=== PATIENT | female | born 1990 | race Caucasian/White ===

== ENCOUNTER 2020-05-05 11:16 | Outpatient (CLI) | payer BC, SELFPAY ==
--- NOTE | ~2020-05-05 | MMUS_ITS ---
EXAMINATION: MM diagnostic colten BI w kit, US breast LT limited HISTORY: Left breast mass TECHNIQUE: Full field and spot 3-D tomosynthesis images of the right breast and full field 3-D Tomosy nthesis images of the left breast were performed and synthetic 2-D images were generated. CAD analysi s was submitted and interpreted. High resolution targeted left breast ultrasound was performed. COMPARISON: None BREAST PARENCHYMAL COMPOSITION: There are scattered areas of fibroglandular density. FINDINGS: MAMMOGRAPHIC FINDINGS: There is an approximately 1.4 x 1.8 cm irregular spiculated mass posteriorly in the outer mid to uppe r left breast, suggestive of malignancy. No other suspicious mass or architectural distortion or any malignant calcification, skin thickening or retraction is detected. ULTRASOUND: There is an irregular hypoechoic solid mass with posterior shadowing at 3:00 position 7 cm from nippl e, measuring up to 1.5 x 2.4 cm dimension, highly suggestive of malignancy. IMPRESSION: 1. 2.4 cm irregular mass of left breast at 3:00 7 cm from nipple, highly suggestive of malignancy 2. Appropriate action should be taken; ultrasound guided biopsy is recommended. BI-RADS category 5, highly suggestive of malignancy. Dr. Ledbetter telephoned the finding to Dr. Nikolay Ornelas'arturo Rogers on 05/05/2020 at 1525 hours. Reviewed, dictated and finalized at location A. IMPRESSION: 1. 2.4 cm irregular mass of left breast at 3:00 7 cm from nipple, highly sugges tive of malignancy 2. Appropriate action should be taken; ultrasound guided biopsy is recommended. BI-RADS category 5, highly suggestive of malignancy. Dr. Ledbetter telephoned the finding to Dr. Nikolay Ornelas'arturo Rogers on 05/05/2020 a t 1525 hours. IMPRESSION: 1. 2.4 cm irregular mass of left breast at 3:00 7 cm from nipple, highly sugges tive of malignancy 2. Appropriate action should be taken; ultrasound guided biopsy is recommended. BI-RADS category 5, highly suggestive of malignancy. Dr. Ledbetter telephoned the finding to Dr. Nikolay Ornelas's Izabella Rogers on 05/05/2020 a t 1525 hours.
== END 2020-05-05 11:17 | disposition home or self-care (01) ==
PROVIDERS: PCP Nurse Practitioner Family; Visit Provider Obstetrics & Gynecology
DX: N63.0 Unspecified lump in unspecified breast (principal); R92.8 Other abnormal and inconclusive findings on diagnostic imaging of breast
CPT/HCPCS: 76642; 77062; 77066; G0279

== ENCOUNTER 2020-06-18 10:17 | Emergency (ER) | payer BC, SELFPAY ==
--- NOTE | ~2020-06-18 | CT_ITS ---
EXAMINATION: CT abdomen pelvis w con EXAM DATE: 06/18/2020 12:16 INDICATION: Left lower quadrant pain. Hematochezia. Diarrhea. TECHNIQUE: Spiral CT of the abdomen and pelvis was performed following intravenous injection of 100 m L Omnipaque 350. Axial, coronal and sagittal images were reviewed. The dose-length product (DLP) fo r this examination was 945.44 mGy-cm. The exposure was tailored according to patient size (auto mA e xposure control), and iterative reconstruction (ASIR) was used as additional dose reduction technique . Comparison is made to prior examination from 01/27/2019. FINDINGS: No change in the subcentimeter right liver lobe hypodensity, a benign finding. Gallbladder is unremarkable. No biliary obstruction. Portal and splenic veins are patent. Kidneys enhance sym metrically. There is no hydronephrosis. There is IUD which appears to be centrally located within the endometrium, expected position. Ovaries are normal in size. The bladder is unremarkable. There is no retroperitoneal or pelvic lymphadenopathy. There is descending and to a lesser extent sigmoid colonic wall edema without pneumatosis. Appearance is consistent with colitis most likely infectious. The appendix is normal. The stomach and small b owel are unremarkable. No free intraperitoneal gas. The heart is normal in size. There are no pe ricardial or pleural effusions. The lung bases are unremarkable. The bones are unremarkable. IMPRESSION: Descending colonic colitis. Reviewed, dictated and finalized at location A. [facility] OFFICE SCHEDULER IMPRESSION: Descending colonic colitis.
[2020-06-18 10:19] VITALS: BP 124/78; PULSE 107; RESP 18; TEMP 36.4; O2SAT 97
[2020-06-18 10:44] LABS: Basophils Percent Auto 0.2 % (0.2-1.2); Eosinophils Percent Auto 0.1 % (0-4.4); Hematocrit 43.5 % (37.0-47.0); Hemoglobin 15.1 g/dL (12.0-15.0); Immature Granulocyte Absolute 0.06 K/mm3 (0.00-0.031); Immature Granulocyte Percent A 0.4 % (0-0.5); Lymphocytes Absolute Auto 1.22 K/mm3 (0.9-3.2); Lymphocytes Percent Auto 7.8 % (18.3-44.2); Mean Corpuscular HGB Conc 34.7 g/dl (32-36); Mean Corpuscular Hemoglobin 30.3 pg (26-34); Mean Corpuscular Volume 87.3 fl (80-100); Mean Platelet Volume 9.9 fl (7.4-10.4); Monocytes Absolute Auto 0.7 K/mm3 (0.1-0.6); Monocytes Percent Auto 4.4 % (2.6-8.5); Neutrophils Absolute Auto 13.6 K/mm3 (1.3-6.7); Neutrophils Percent Auto 87.1 % (45.5-73.1); Platelet Count Result 362 k/mm3 (150-375); Red Blood Count 4.98 M/mm3 (4.2-5.4); Red Cell Distribution Width 11.7 % (11.5-14.5); White Blood Count 15.7 K/mm3 (4.5-10.0)
[2020-06-18 10:57] LABS: Alanine Aminotransferase 25 U/L (4-35); Albumin Level 4.6 g/dL (3.5-5.1); Alkaline Phosphatase 130 U/L (38-126); Anion Gap 7 mmol/L (8-16); Aspartate Amino Transferase 31 U/L (14-36); Bilirubin,Total 0.9 mg/dL (0.2-1.3); Blood Urea Nitrogen 17 mg/dL (7-17); Calcium 9.6 mg/dL (8.4-10.2); Carbon Dioxide 28 mmol/L (22-30); Chloride 102 mmol/L (98-107); Estimated CRCL calculation 115 ml/min; Estimated Glomerular Filt Rate > 60; Glucose 107 mg/dL (65-105); Lipase 57 U/L (23-300); Sodium 137 mmol/L (137-145)
[2020-06-18 11:30] LABS: Add Urine Microscopic? YES; Appearance Urine Clear (Clear); Bacteria Urine Trace /hpf; Bilirubin Urine Negative (Negative); Blood Urine 3+ (Negative); Color Urine Yellow (Yellow); Glucose Urine UA Negative (Negative); Ketones Urine Negative (Negative); Leukocyte Esterase Ur Trace LEU/UL (Negative); Mucus Urine Few /lpf; Nitrate Urine Negative (Negative); Protein Urine 1+ mg/dL (Negative); RBC Urine >75 /hpf (0-2); Specific Grav Ur 1.021 (1.001-1.035); Squamous Epithelial Cell Urine Moderate /hpf (Few); Transitional Epi Cells Urine Rare /hpf (None Seen); Urobilinogen Urine Negative mg/dL (<2.0); WBC Urine 0-3 /hpf
[2020-06-18 11:44] VITALS: BP 119/81; PULSE 92; RESP 17; O2SAT 99
[2020-06-18] MEDS: FAMOTIDINE 20 MG/2 ML VIAL IV PUSH (11:46)
[2020-06-18] MEDS: ONDANSETRON INJ 4 MG/2 ML VIAL IV PUSH (11:46)
[2020-06-18] MEDS: SODIUM CHLORIDE 0.9% IV 1,000 ML 999 ML IV CONT (11:46)
--- NOTE | 2020-06-18 13:09 | ED.GENADULT ---
HPI - General Adult General Chief complaint: Abdominal Pain Stated complaint: abd pain, diarrhea Time Seen by Provider: 06/18/20 11:20 Source: patient Mode of arrival: ambulatory Limitations: no limitations History of Present Illness HPI narrative: Patient is a 29-year-old female who presents to emergency department for evaluation of abdominal pain with liquid stool with diarrhea and nausea that began over the course of the last 2 days had had a similar occurrence in the past 1 time diagnosed as colitis patient on presentation is nontoxic-appearing patient denies vomiting or other URI symptoms or complaints has not taken anything for symptoms Related Data Home Medications Medication Instructions Recorded Confirmed No Home Medications 06/18/20 06/18/20 Allergies Allergy/AdvReac Type Severity Reaction Status Date / Time codeine Allergy Mild Seizure Verified 06/18/20 11:36 Review of Systems Review of Systems: All systems reviewed & are unremarkable except as noted in HPI and below PMFSH Social History Social History (Updated 06/18/20 @ 13:11 by Ignacio Landry PA-C) Smoking status: Never smoker Gender identity (if verbalized by the patient): Female Exam Narrative: Exam Narrative: GENERAL: Well-appearing, well-nourished, and in no acute distress. HEAD: Normocephalic, atraumatic. EYES: PERRLA and EOMI. ENT: Nares clear, no rhinorrhea or epistaxis. Mucous membranes moist. CHEST: Clear to auscultation. No respiratory distress. No wheezes rales or rhonchi HEART: Regular rate and rhythm. No murmur heard. Normal peripheral pulses. ABDOMEN: Soft, left abdominal tenderness no rebound guarding , nondistended EXTREMITIES: Normal range of motion. No edema. SKIN: Warm, dry, no rash. NEURO: No focal deficits. Alert and oriented x3. PSYCH: Normal mood and affect. Course Course Emergency Course: Patient evaluated in the emergency department afebrile nontoxic-appearing without emesis was hydrated given medications will be treated for colitis given GI follow-up patient feels comfortable with this plan is also been given strict reasons to return. Consultations Consultation #1: Discussed case with hot stick worker Dr. Tanner who can follow the patient up on an outpatient basis if the patient would like to follow with GI Date: 06/18/20 Time: 13:25 Vital Signs Vital signs: Vital Signs Temperature 97.6 F 06/18/20 10:19 Pulse Rate 107 H 06/18/20 10:19 Respiratory Rate 18 06/18/20 10:19 Blood Pressure 124/78 06/18/20 10:19 Pulse Oximetry 97 06/18/20 10:19 Temperature 97.6 F 06/18/20 10:19 Pulse Rate 92 06/18/20 11:44 Respiratory Rate 17 06/18/20 11:44 Blood Pressure 119/81 06/18/20 11:44 Pulse Oximetry 99 06/18/20 11:44 Medical Decision Making MDM Narrative Medical decision making narrative: Patient with colitis nontoxic without emesis will be discharged with GI follow-up given reasons to return. ABCs stable vital signs intact and stable patient will be discharged home the bed situation is very tight and with Covid it is felt that it is safest to try and manage the patient on an outpatient basis patient will be given medications and clear liquid diet instructions medicated with antibiotics and GI and primary care follow-up given strict reasons to return Vital Signs Vital Signs: Vital Signs Temperature 97.6 F 06/18/20 10:19 Pulse Rate 107 H 06/18/20 10:19 Respiratory Rate 18 06/18/20 10:19 Blood Pressure 124/78 06/18/20 10:19 Pulse Oximetry 97 06/18/20 10:19 Temperature 97.6 F 06/18/20 10:19 Pulse Rate 92 06/18/20 11:44 Respiratory Rate 17 06/18/20 11:44 Blood Pressure 119/81 06/18/20 11:44 Pulse Oximetry 99 06/18/20 11:44 Lab Data Result diagrams: 06/18/20 10:31 06/18/20 10:31 Labs: Lab Results 06/18/20 06/18/20 06/18/20 Range/Units 10:31 10:31 11:05 WBC 15.7 H (4.5-10.0) K/mm3 RBC 4.98 (4
[2020-06-18 14:17] VITALS: BP 126/69; PULSE 72; RESP 14; O2SAT 95
== END 2020-06-18 14:23 | disposition home or self-care (01) ==
PROVIDERS: Emergency Provider Emergency Medicine; PCP Nurse Practitioner Family
DX: K52.9 Noninfective gastroenteritis and colitis, unspecified (principal)
CPT/HCPCS: 36415; 74177; 80053; 81001; 81025; 83690; 85025; 96365; 96375; 99284; J0131; J2405; J7030; Q9967